=== PATIENT | female | born 1955 | race Hispanic/Latino ===

== ENCOUNTER 2024-03-13 02:29 | Emergency (ER) | payer SELFPAY ==
[2024-03-13 02:34] VITALS: BP 136/74
[2024-03-13 02:49] VITALS: BMI 22.5
--- NOTE | 2024-03-13 02:49 | EDRN ---
Granddaughter says pt was walking to bathroom and pt tripped on a sofa hitting her head on the edge of a sharp wall. Family had pt sit on floor. Family became concerned because pt started shaking like she was going to have a seizure (no history)
then pt was unresponsive for approximately 1 minute then started shaking again. Pt became alert and oriented after this. 911 called. Pt tells family she saw black when episode happened. EMS checked pt's VS and told family pt looked 'alright.'
Pt gets her aspirin from [place] and says she takes 40mg daily. Pt struck R side of her head and has pain in her R cheek and R arm. Little pain in R neck but most pain is in R shoulder. No cp, sob, n/v, abd pain, dizziness, headache. Pt has been
ambulatory since this fall and has been walking per norm.
[2024-03-13 03:00] VITALS: BP 102/74
--- NOTE | 2024-03-13 03:56 | ED.MUSCINJ ---
HPI-Injury
General
Chief Complaint: Fall
Source: patient and family
Exam Limitations: none
Time Seen by Provider: 03/13/24 02:50
Nursing documentation reviewed up to this point in time: agreed with
History of Present Illness-Injury
Initial Injury comments:
Pleasant 68-year-old female that presents with right shoulder pain after a trip and fall. She states that she tripped over the leg of the Sofa and he hit the wall with her head. She states that she was dazed and partially blacked out. She was
able to ambulate. She states that she is back to normal with the exception of right shoulder pain. Denies any other symptoms. Is not on any blood thinners.
Past History
Past History
ED Past Medical History: NIDDM
Social History
Tobacco: Non-smoker
Alcohol: None
Drug: None
Living: with family
Review of Systems
Review of Systems
Allergies reviewed?: Yes
Musculoskeletal: Reports joint pain, joint swelling and muscle stiffness
Musculoskeletal Injury Exam
Musculoskeletal Injury Exam
Right Shoulder:
Pain with Movement?: Mild
Tender to palpation?: Mild
Soft tissue swelling?: None
External deformity and angulation?: None
Joint effusion?: None
Contusion?: None
Hematoma-local bleeding into tissue?: None
Strain- Sprain- Tear (Connective tissue injury)?: Mild
Phy Exam
General Physical Exam
General Presentation: well appearing and no apparent distress
General Skin: warm and dry
General Habitus: normal
General Mental: alert
General Hydration: appears well hydrated
ENT Exam
ENT Exam: EOMI, pharynx normal, neck supple and normocephalic
Eye Exam
Eye Exam: PERRL, cornea clear and conjunctiva normal
Cardiovascular Exam
Cardiovascular Exam: regular rate/rhythm, no edema, no murmur and normal peripheral pulses
Pulmonary Exam
Pulmonary Exam: lungs clear, no respiratory distress, no rales, no crackles, no rhonchi, no stridor, no wheezing and no cough
Gastrointestinal Exam
Gastrointestinal Exam: normal bowel sounds, non tender, soft, no organomegaly, no pulsatile mass and non distended
Neurological Exam
Neurological Exam: alert, oriented x3, no motor deficits and speech normal
Musculoskeletal Exam
Musculoskeletal Exam: neuro vasc intact and other (Right shoulder pain with no evidence of contusion. Limited range of motion. Suspicion of rotator cuff injury)
Skin Exam
Skin Exam: normal color, warm/dry, no rash and no petechia
Psychiatric Exam
Psychiatric Exam: normal mood/affect
Injury Course
Orders/Labs/Results
Orders:
Orders
03/13/24 02:50
CT Head W/o Iv Contrast Urgent
Comment:
Reason For Exam: fall
03/13/24 03:29
Shoulder, Right 2 Views [CR Shoulder - Right Min 2 View] Urgent
Comment:
Reason For Exam: fall
03/13/24 04:00
Sling Right-Treatment ONCE
*Radiology
Radiology exam reviewed: all reviewed NAD by ED Provider
*Pulse Oximetry
Patient hypoxic: no
*Critical Care Note
Total Time (30-74mins, 75-104mins- exclusive of procedures): Not Applicable
Update Note
Update Note:
CT head without IV contrast
IMPRESSION:
No hemorrhage or other acute intracranial abnormality.
Finalized at 3:50 AM EST
ED Attending Note
-
Portions of this chart may have been created with voice recognition software.� Occasional wrong word or��sound alike� substitutions may have occurred due to the inherent limitations of voice recognition software.
Discharge Plan
Departure
Patient Disposition: Home (Routine Discharge)
Date of Disposition: 03/13/24
Time of Disposition: 04:21
Patient with high blood pressure during this ER visit?: No
Condition: Good
Discharge Problem:
Fall, Acute shoulder pain
Instructions: Head Injury in Adults (DC), Contusion (DC), Preventing falls in adults, How to Use a Shoulder Sling ED
Prescriptions:
No Action
metformin 850 mg Tablet
850 mg PO BID
aspirin
40 mg PO DAILY
Patient Comments:
pt gets her aspirin from [place]
fexofenadine [[place]] 180 mg Tablet
180 mg PO DAILY
Referrals:
[facility] [Provider Group] - As needed
NONE,* [Family Provider] -
Activity Restrictions/Additional Instructions:
It was a pleasure meeting you and taking part in your care. We hope for your continued healing and wellness.
Please read discharge instructions in their entirety. However, they are for general education and may not describe your exact diagnosis at discharge. Information on your ER visit and medical conditions were discussed with you along with appropriate
follow up information...
If indicated, please take your medications as instructed and indicated on discharge paperwork.
Please schedule a follow up appointment as directed. Call to schedule an appointment
Please return to the emergency department with ANY change in, persisting, or worsening of symptoms. If any of your symptoms do not improve, or persist, or become more severe within 6-12 hours, please return to the emergency department for further
care.
Please return to the emergency department if you develop a headache, neck pain/stiffness, fever greater than 100.4F, chest pain, shortness of breath, persistent nausea, vomiting, slurred speech, difficulty walking, numbness/tingling, weakness, signs
of infection or any other symptoms that are worrisome to you.
If you have any questions or concerns please do not hesitate to call the Hospital at or E-mail me directly at [email or web address]
Interventions
Interventions:
*Risk Screen - Suicide Last Done: 03/13/24 02:34
*General Assessment Last Done: 03/13/24 02:34
*Neglect/Abuse Screening Last Done: 03/13/24 02:34
ED- Fall Risk Assessment Last Done: 03/13/24 02:34
*ED COVID-19 Vaccine History Last Done: 03/13/24 02:34
ED-Musculoskeletal Assessment Last Done: 03/13/24 03:03
ED- Neurological Assessment Last Done: 03/13/24 03:03
ED-Skin Assessment Last Done: 03/13/24 03:03
Discharge Date and Time
Print Language: WOLOF
[2024-03-13 04:30] VITALS: BP 127/72
== END 2024-03-13 04:39 | disposition home or self-care (01) ==
LOC: EMR 02:29
PROVIDERS: EMERGENCY PHYSICIAN Student in an Organized Health Care Education/Training Program
DX: R55 Syncope and collapse (principal); S40.211A Abrasion of right shoulder, initial encounter; S09.90XA Unspecified injury of head, initial encounter; M25.511 Pain in right shoulder; R41.0 Disorientation, unspecified; W01.0XXA Fall on same level from slipping, tripping and stumbling without subsequent striking against object, initial encounter; E11.9 Type 2 diabetes mellitus without complications; Z79.82 Long term (current) use of aspirin; Z79.84 Long term (current) use of oral hypoglycemic drugs
CPT/HCPCS: 99284; 70450; 73030